=== PATIENT | male | born 1970 | race Caucasian/White ===

== ENCOUNTER 2023-04-04 06:42 | Inpatient (IN) ==
[2023-04-04] MEDS ORDERED: Lactated Ringers 1000 ml BAG 1,000 ML IV ONE ×2 (06:55→10:43)
[2023-04-04 07:44] LABS: ABS Lymphocytes 0.2 10^3/uL (1.0-4.8); ABS Monocytes 0.3 10^3/uL (0.0-1.1); ABS Neutrophils 6.4 10^3/uL (1.5-7.6); ABS Nucleated RBC 0.01 10^3/ul; Hematocrit 48.8 % (38-53); Hemoglobin 16.9 g/dL (13.2-16.3); Lymphocyte % 2.2 %; Mean Corpuscular Hemoglobin 28.4 pg (27-33); Mean Corpuscular Hgb Conc 34.6 g/dL (31-36); Mean Corpuscular Volume 82.1 fL (80-97); Mean Platelet Volume 8.3 fL (7.5-11.2); Nucleated Red Blood Cells % 0.2 /100 WBC (0.0-0.4); Platelet Count 232 10^3/uL (150-450); Red Blood Count 5.95 10^6/uL (4.06-5.63); Red Cell Distribution Width 14.4 % (12-17); White Blood Count 6.9 10^3/uL (3.6-10.2)
[2023-04-04 08:00] LABS: INR 1.15 (0.88-1.18)
[2023-04-04 08:28] LABS: Albumin 4.1 g/dL (3.2-5.2); Albumin/Globulin Ratio 1.6 (1-3); C Reactive Protein 18.46 mg/L (<8.01); Calcium 8.7 mg/dL (8.6-10.3); Globulin 2.6 g/dL (2-4); Potassium 3.2 mmol/L (3.5-5.0); Total Bilirubin 1.9 mg/dL (0.2-1.0); Total Protein 6.7 g/dL (6.4-8.9)
[2023-04-04 09:10] LABS: High Sensitivity Troponin 1 Hr 7 pg/mL (<20)
[2023-04-04 10:03] LABS: Magnesium 1.7 mg/dL (1.9-2.7)
[2023-04-04] MEDS ORDERED: Magnesium Sulfate 2 gm BAG 2 GM/50 ML BAG IVPB ONE (10:37)
[2023-04-04] MEDS: KCL 20 MEQ/100 ML IVPREMIX 20 MEQ/100 ML BAG IV SCH ×2 (10:57→14:01)
[2023-04-04] MEDS ORDERED: Remdesivir 100 mg Vial 200 MG in NS 0.9% 250 ml 210 ML IV ONE (11:30)
[2023-04-04 11:57] LABS: Urine Appearance Clear; Urine Bilirubin Negative (Negative); Urine Blood 1+ (Negative); Urine Color Yellow; Urine Glucose 3+(>=500 mg/dL) (Negative); Urine Ketones 1+ (Negative); Urine Nitrite Negative (Negative); Urine Protein Negative (Negative); Urine Specific Gravity 1.024 (1.002-1.030); Urine Urobilinogen Negative (Negative)
[2023-04-04 11:59] LABS: Urine Bacteria Absent (Absent); Urine Red Blood Cell Trace(0-2/hpf) (Absent); Urine Sperm Present (Absent); Urine White Blood Cell Trace(0-5/hpf) (Absent)
[2023-04-04] MEDS: Enoxaparin 40 MG/0.4 ML SYR SUBCUT SCH (14:01)
[2023-04-05 06:45] LABS: INR 1.34 (0.88-1.18)
[2023-04-05 06:57] LABS: ABS Lymphocytes 0.5 10^3/uL (1.0-4.8); ABS Monocytes 0.5 10^3/uL (0.0-1.1); ABS Neutrophils 2.9 10^3/uL (1.5-7.6); ABS Nucleated RBC 0.02 10^3/ul; Hematocrit 46.7 % (38-53); Hemoglobin 15.9 g/dL (13.2-16.3); Lymphocyte % 12.2 %; Mean Corpuscular Hemoglobin 28.3 pg (27-33); Mean Platelet Volume 8.8 fL (7.5-11.2); Nucleated Red Blood Cells % 0.4 /100 WBC (0.0-0.4); Platelet Count 148 10^3/uL (150-450); Red Blood Count 5.63 10^6/uL (4.06-5.63); Red Cell Distribution Width 14.6 % (12-17)
[2023-04-05 07:25] LABS: Albumin 3.3 g/dL (3.2-5.2); Albumin/Globulin Ratio 1.6 (1-3); Calcium 7.9 mg/dL (8.6-10.3); Creatinine, Serum 0.92 mg/dL (0.67-1.17); Globulin 2.1 g/dL (2-4); Potassium 3.6 mmol/L (3.5-5.0); Total Bilirubin 1.5 mg/dL (0.2-1.0); Total Protein 5.4 g/dL (6.4-8.9); eGFR CKD-EPI 99.5 (>60)
[2023-04-05] MEDS: Remdesivir 100 mg Vial 100 MG in NS 0.9% 250 ml 230 ML IV SCH (11:07)
[2023-04-05] MEDS: Enoxaparin 40 MG/0.4 ML SYR SUBCUT SCH (12:01)
[2023-04-05] MEDS: NS 0.9% 1000 ml BAG 1,000 ML IV SCH (15:41)
[2023-04-06] MEDS: NS 0.9% 1000 ml BAG 1,000 ML IV SCH (04:38)
[2023-04-06 07:07] LABS: INR 1.37 (0.88-1.18)
[2023-04-06 07:32] LABS: Albumin 2.7 g/dL (3.2-5.2); Albumin/Globulin Ratio 1.5 (1-3); Calcium 7.3 mg/dL (8.6-10.3); Creatinine, Serum 0.77 mg/dL (0.67-1.17); Globulin 1.8 g/dL (2-4); Potassium 3.4 mmol/L (3.5-5.0); Total Bilirubin 0.8 mg/dL (0.2-1.0); Total Protein 4.5 g/dL (6.4-8.9); eGFR CKD-EPI 107.1 (>60)
[2023-04-06] MEDS: Remdesivir 100 mg Vial 100 MG in NS 0.9% 250 ml 230 ML IV SCH (08:27)
[2023-04-06] MEDS ORDERED: KCL 20 MEQ/100 ML IVPREMIX 20 MEQ/100 ML BAG IV ONE (08:44)
[2023-04-06] MEDS ORDERED: Benzocaine (plain) Lozenge 15 MG MT PRN (09:41)
[2023-04-06] MEDS: Enoxaparin 40 MG/0.4 ML SYR SUBCUT SCH (12:24)
[2023-04-07 06:59] LABS: INR 1.4 (0.88-1.18)
[2023-04-07 07:11] LABS: Albumin 2.8 g/dL (3.2-5.2); Calcium 7.6 mg/dL (8.6-10.3); Magnesium 1.7 mg/dL (1.9-2.7); Potassium 3.5 mmol/L (3.5-5.0); Total Bilirubin 0.7 mg/dL (0.2-1.0)
[2023-04-07 07:17] LABS: Albumin/Globulin Ratio 1.6 (1-3); Creatinine, Serum 0.76 mg/dL (0.67-1.17); Globulin 1.7 g/dL (2-4); Total Protein 4.5 g/dL (6.4-8.9); eGFR CKD-EPI 107.5 (>60)
[2023-04-07] MEDS ORDERED: Potassium Chlor 20 meq TAB.ER PO ONE (07:23)
[2023-04-07] MEDS: Remdesivir 100 mg Vial 100 MG in NS 0.9% 250 ml 230 ML IV SCH (08:55)
[2023-04-07] MEDS: Enoxaparin 40 MG/0.4 ML SYR SUBCUT SCH (11:01)
[2023-04-08 06:20] LABS: ABS Lymphocytes 0.8 10^3/uL (1.0-4.8); ABS Monocytes 0.3 10^3/uL (0.0-1.1); ABS Neutrophils 1.7 10^3/uL (1.5-7.6); ABS Nucleated RBC 0.01 10^3/ul; Eosinophil % 1.5 %; Hematocrit 42.3 % (38-53); Hemoglobin 14.8 g/dL (13.2-16.3); Lymphocyte % 28.3 %; Mean Platelet Volume 8.9 fL (7.5-11.2); Nucleated Red Blood Cells % 0.4 /100 WBC (0.0-0.4); Platelet Count 133 10^3/uL (150-450); Red Blood Count 5.29 10^6/uL (4.06-5.63); Red Cell Distribution Width 14.3 % (12-17); White Blood Count 2.9 10^3/uL (3.6-10.2)
[2023-04-08 06:28] LABS: INR 1.22 (0.88-1.18)
[2023-04-08 06:45] LABS: Albumin 2.9 g/dL (3.2-5.2); Albumin/Globulin Ratio 1.5 (1-3); Calcium 7.6 mg/dL (8.6-10.3); Creatinine, Serum 0.73 mg/dL (0.67-1.17); Globulin 1.9 g/dL (2-4); Magnesium 1.9 mg/dL (1.9-2.7); Potassium 3.5 mmol/L (3.5-5.0); Total Bilirubin 0.7 mg/dL (0.2-1.0); Total Protein 4.8 g/dL (6.4-8.9); eGFR CKD-EPI 108.8 (>60)
[2023-04-08] MEDS ORDERED: Potassium EFFERVES 25 meq TAB PO ONE (09:08)
[2023-04-08] MEDS: Remdesivir 100 mg Vial 100 MG in NS 0.9% 250 ml 230 ML IV SCH (09:12)
[2023-04-08] MEDS: Enoxaparin 40 MG/0.4 ML SYR SUBCUT SCH (11:33)
[2023-04-09 06:25] LABS: ABS Lymphocytes 0.8 10^3/uL (1.0-4.8); ABS Monocytes 0.3 10^3/uL (0.0-1.1); ABS Neutrophils 1.9 10^3/uL (1.5-7.6); ABS Nucleated RBC 0.01 10^3/ul; Eosinophil % 1.1 %; Hematocrit 43.3 % (38-53); Hemoglobin 14.9 g/dL (13.2-16.3); Lymphocyte % 26.3 %; Mean Corpuscular Hemoglobin 28.2 pg (27-33); Mean Corpuscular Hgb Conc 34.4 g/dL (31-36); Mean Corpuscular Volume 81.9 fL (80-97); Mean Platelet Volume 8.7 fL (7.5-11.2); Nucleated Red Blood Cells % 0.2 /100 WBC (0.0-0.4); Platelet Count 131 10^3/uL (150-450); Red Blood Count 5.28 10^6/uL (4.06-5.63); Red Cell Distribution Width 14.4 % (12-17)
[2023-04-09 06:31] LABS: INR 1.24 (0.88-1.18)
[2023-04-09 06:46] LABS: Albumin/Globulin Ratio 1.6 (1-3); Calcium 7.8 mg/dL (8.6-10.3); Creatinine, Serum 0.69 mg/dL (0.67-1.17); Globulin 1.9 g/dL (2-4); Potassium 3.7 mmol/L (3.5-5.0); Total Protein 4.9 g/dL (6.4-8.9); eGFR CKD-EPI 110.7 (>60)
[2023-04-09] MEDS: Potassium Chloride LIQUID 20 MEQ/15 ML LIQUID PO ONE ×2 (10:58→11:08)
[2023-04-09] MEDS: Enoxaparin 40 MG/0.4 ML SYR SUBCUT SCH (10:59)
[2023-04-09] MEDS ORDERED: Potassium EFFERVES 25 meq TAB PO ONE (11:19)
[2023-04-10 06:39] LABS: ABS Lymphocytes 0.8 10^3/uL (1.0-4.8); ABS Monocytes 0.3 10^3/uL (0.0-1.1); Hematocrit 42.9 % (38-53); Lymphocyte % 24.6 %; Mean Corpuscular Hemoglobin 28.5 pg (27-33); Mean Corpuscular Hgb Conc 34.9 g/dL (31-36); Mean Corpuscular Volume 81.6 fL (80-97); Mean Platelet Volume 8.8 fL (7.5-11.2); Nucleated Red Blood Cells % 0.1 /100 WBC (0.0-0.4); Platelet Count 122 10^3/uL (150-450); Red Blood Count 5.26 10^6/uL (4.06-5.63); White Blood Count 3.2 10^3/uL (3.6-10.2)
[2023-04-10 07:27] LABS: Calcium 7.7 mg/dL (8.6-10.3); Creatinine, Serum 0.71 mg/dL (0.67-1.17); Potassium 3.9 mmol/L (3.5-5.0); eGFR CKD-EPI 109.7 (>60)
[2023-04-10] MEDS: Enoxaparin 40 MG/0.4 ML SYR SUBCUT SCH (12:19)
[2023-04-11 06:12] VITALS: BP 106/71
== END 2023-04-11 08:07 | DRG 871 ==
LOC: EDHOLD 06:42 → ED 06:42 → SUATTDRO 09:33 → EDHOLD 15:32 → MEDTELE 16:35 → SUATTDRO 04-05 11:14
PROVIDERS: ADMIT Internal Medicine; ATTEND Student in an Organized Health Care Education/Training Program

== ENCOUNTER 2023-04-10 09:14 | Inpatient (IN) ==
[2023-04-11] MEDS ORDERED: Senna TAB 8.6 mg TAB PO PRN (08:19)
[2023-04-11] MEDS ORDERED: Enoxaparin 40 MG/0.4 ML SYR SUBCUT SCH ×2 (09:00→12:00)
[2023-04-11 13:51] LABS: TSH Ultra Thyroid Stim Horm 1.16 mcIU/mL (0.34-5.60)
[2023-04-11 14:02] LABS: Vitamin D Total 25(OH) 49.8 ng/mL (20-50)
[2023-04-12 08:43] LABS: Hematocrit 46.5 % (38-53); Hemoglobin 15.9 g/dL (13.2-16.3); Mean Corpuscular Hemoglobin 28.3 pg (27-33); Mean Corpuscular Hgb Conc 34.2 g/dL (31-36); Mean Corpuscular Volume 82.7 fL (80-97); Red Blood Count 5.62 10^6/uL (4.06-5.63); Red Cell Distribution Width 14.5 % (12-17); White Blood Count 2.8 10^3/uL (3.6-10.2)
[2023-04-12 08:48] LABS: Albumin 3.7 g/dL (3.2-5.2); Albumin/Globulin Ratio 1.5 (1-3); Calcium 8.5 mg/dL (8.6-10.3); Creatinine, Serum 0.8 mg/dL (0.67-1.17); Globulin 2.5 g/dL (2-4); Potassium 3.9 mmol/L (3.5-5.0); Total Protein 6.2 g/dL (6.4-8.9); eGFR CKD-EPI 105.8 (>60)
[2023-04-12 09:15] LABS: ABS Lymphocytes 0.7 10^3/uL (1.0-4.8); ABS Monocytes 0.4 10^3/uL (0.0-1.1); ABS Neutrophils 1.7 10^3/uL (1.5-7.6); ABS Nucleated RBC 0.01 10^3/ul; Eosinophil % 0.9 %; Mean Platelet Volume 9.4 fL (7.5-11.2); Nucleated Red Blood Cells % 0.3 /100 WBC (0.0-0.4); Platelet Count 132 10^3/uL (150-450)
[2023-04-12] MEDS: Enoxaparin 40 MG/0.4 ML SYR SUBCUT SCH (10:17)
[2023-04-13] MEDS: Enoxaparin 40 MG/0.4 ML SYR SUBCUT SCH (10:45)
[2023-04-13] MEDS: Magnesium Hydroxide LIQ 30 ML UDC PO PRN (17:02)
[2023-04-13] MEDS ORDERED: Docusate LIQ 100 MG/10 ML UDC PO PRN (23:15)
[2023-04-14] MEDS: Enoxaparin 40 MG/0.4 ML SYR SUBCUT SCH (11:15)
[2023-04-15 06:14] LABS: Hematocrit 41.3 % (38-53); Mean Corpuscular Hemoglobin 28.1 pg (27-33); Mean Corpuscular Hgb Conc 33.9 g/dL (31-36); Mean Corpuscular Volume 82.9 fL (80-97); Platelet Count 171 10^3/uL (150-450); Red Blood Count 4.98 10^6/uL (4.06-5.63); Red Cell Distribution Width 14.6 % (12-17); White Blood Count 3.5 10^3/uL (3.6-10.2)
[2023-04-15 08:51] LABS: ABS Eosinophils 0.1 10^3/uL (0.0-0.5); ABS Lymphocytes 0.9 10^3/uL (1.0-4.8); ABS Monocytes 0.4 10^3/uL (0.0-1.1); ABS Neutrophils 2.1 10^3/uL (1.5-7.6); Eosinophil % 1.5 %; Lymphocyte % 26.8 %
[2023-04-15] MEDS: Enoxaparin 40 MG/0.4 ML SYR SUBCUT SCH (12:14)
[2023-04-16 06:45] LABS: ABS Lymphocytes 0.9 10^3/uL (1.0-4.8); ABS Monocytes 0.4 10^3/uL (0.0-1.1); ABS Neutrophils 2.3 10^3/uL (1.5-7.6); Hematocrit 42.9 % (38-53); Hemoglobin 14.7 g/dL (13.2-16.3); Lymphocyte % 24.1 %; Mean Corpuscular Hemoglobin 28.6 pg (27-33); Mean Corpuscular Hgb Conc 34.2 g/dL (31-36); Mean Corpuscular Volume 83.4 fL (80-97); Nucleated Red Blood Cells % 0.1 /100 WBC (0.0-0.4); Red Blood Count 5.15 10^6/uL (4.06-5.63); Red Cell Distribution Width 14.7 % (12-17); White Blood Count 3.6 10^3/uL (3.6-10.2)
[2023-04-16 07:04] LABS: Albumin 3.6 g/dL (3.2-5.2); Albumin/Globulin Ratio 1.4 (1-3); Calcium 8.5 mg/dL (8.6-10.3); Creatinine, Serum 0.84 mg/dL (0.67-1.17); Globulin 2.6 g/dL (2-4); Potassium 4.9 mmol/L (3.5-5.0); Total Bilirubin 1.2 mg/dL (0.2-1.0); Total Protein 6.2 g/dL (6.4-8.9); eGFR CKD-EPI 104.3 (>60)
[2023-04-16 07:05] LABS: Mean Platelet Volume 8.7 fL (7.5-11.2); Platelet Count 184 10^3/uL (150-450)
[2023-04-16] MEDS: Enoxaparin 40 MG/0.4 ML SYR SUBCUT SCH (09:19)
[2023-04-17] MEDS: Enoxaparin 40 MG/0.4 ML SYR SUBCUT SCH (09:51)
[2023-04-18] MEDS: Enoxaparin 40 MG/0.4 ML SYR SUBCUT SCH (10:01)
[2023-04-19] MEDS: Enoxaparin 40 MG/0.4 ML SYR SUBCUT SCH (08:44)
[2023-04-20] MEDS: Enoxaparin 40 MG/0.4 ML SYR SUBCUT SCH (08:50)
[2023-04-21] MEDS: Enoxaparin 40 MG/0.4 ML SYR SUBCUT SCH (10:36)
[2023-04-22] MEDS: Enoxaparin 40 MG/0.4 ML SYR SUBCUT SCH (10:54)
[2023-04-22] MEDS: Magnesium Hydroxide LIQ 30 ML UDC PO PRN (16:04)
[2023-04-23 07:05] LABS: ABS Basophils 0.1 10^3/uL (0.0-0.1); ABS Monocytes 0.5 10^3/uL (0.0-1.1); ABS Neutrophils 3.8 10^3/uL (1.5-7.6); Eosinophil % 0.9 %; Hematocrit 43.4 % (38-53); Lymphocyte % 18.7 %; Mean Corpuscular Hemoglobin 28.7 pg (27-33); Mean Corpuscular Hgb Conc 34.4 g/dL (31-36); Mean Corpuscular Volume 83.3 fL (80-97); Mean Platelet Volume 8.5 fL (7.5-11.2); Nucleated Red Blood Cells % 0.1 /100 WBC (0.0-0.4); Platelet Count 276 10^3/uL (150-450); Red Blood Count 5.21 10^6/uL (4.06-5.63); Red Cell Distribution Width 14.4 % (12-17); White Blood Count 5.4 10^3/uL (3.6-10.2)
[2023-04-23 07:29] LABS: Albumin 3.8 g/dL (3.2-5.2); Albumin/Globulin Ratio 1.4 (1-3); Calcium 8.5 mg/dL (8.6-10.3); Creatinine, Serum 0.83 mg/dL (0.67-1.17); Globulin 2.7 g/dL (2-4); Potassium 4.4 mmol/L (3.5-5.0); Total Bilirubin 1.1 mg/dL (0.2-1.0); Total Protein 6.5 g/dL (6.4-8.9); eGFR CKD-EPI 104.7 (>60)
[2023-04-23] MEDS: Enoxaparin 40 MG/0.4 ML SYR SUBCUT SCH (07:38)
[2023-04-24] MEDS: Enoxaparin 40 MG/0.4 ML SYR SUBCUT SCH (08:18)
[2023-04-25 05:48] VITALS: BP 110/75
[2023-04-25] MEDS: Enoxaparin 40 MG/0.4 ML SYR SUBCUT SCH (08:25)
== END 2023-04-25 11:05 | disposition home or self-care (01) | DRG 58 ==
LOC: PMRU 04-11 09:51
PROVIDERS: ADMIT Physical Medicine & Rehabilitation; ATTEND Physical Medicine & Rehabilitation